=== PATIENT | female | born 1965 | race Caucasian/White ===

== ENCOUNTER 2018-10-13 11:51 | Day surgery (SDC) | payer OTHER ==
[~2018-10-13 11:51] MED LIST: CEFAZOLIN 2 GM/50 ML (PMX) 50 ML IVPB; LACTATED RINGER'S 1,000 ML IV
[2018-10-13] MEDS ORDERED: ONDANSETRON 4 MG INJ (13:55)
[2018-10-13] MEDS ORDERED: PROPOFOL 20 ML (13:55)
[2018-10-13] MEDS ORDERED: METOCLOPRAMIDE 10 MG INJ (13:55)
[2018-10-13] MEDS ORDERED: CEFAZOLIN 1 GM INJ (13:55)
[2018-10-13] MEDS ORDERED: LIDOCAINE 2% (SDV) 5 ML INJ (13:55)
[2018-10-13] MEDS ORDERED: MEPERIDINE 100 MG INJ (14:15)
[2018-10-13] MEDS: TRIAMCINOLONE ACET 40 MG/ML INJ (14:16)
[2018-10-13] MEDS: BUPIVACAINE 0.5% (SDV) 30 ML INJ (14:16)
[2018-10-13] MEDS: POLYMYXIN/BACITRACIN 1L IRRIG (14:16)
[2018-10-13] MEDS ORDERED: MEPERIDINE 25 MG INJ IV (15:00)
[2018-10-13] MEDS ORDERED: DIPHENHYDRAMINE 50 MG INJ IV (15:00)
[2018-10-13] MEDS ORDERED: HYDROCODONE/APAP (10/325) TAB PO (15:00)
[2018-10-13] MEDS ORDERED: ONDANSETRON (ODT) 4 MG TAB ODT (15:00)
[2018-10-13] MEDS ORDERED: OXYCODONE/ACETAMINOPHEN (5/325) TAB PO ×2 (15:00)
[2018-10-13] MEDS ORDERED: ONDANSETRON 4 MG INJ IV (15:00)
[2018-10-13] MEDS ORDERED: MIDAZOLAM 1 MG/ML 2 ML INJ IV (15:00)
[2018-10-13] MEDS ORDERED: METOCLOPRAMIDE 10 MG INJ IV (15:00)
[2018-10-13] MEDS ORDERED: FENTAnyl 50 MCG/ML VIAL IV ×3 (15:00)
== END 2018-10-13 16:40 | disposition home or self-care (01) ==
LOC: SDS 11:51
DX: M77.32 Calcaneal spur, left foot (principal); M72.2 Plantar fascial fibromatosis
CPT/HCPCS: 28119; 88304